=== PATIENT | female | born 1970 | race Caucasian/White ===

== ENCOUNTER 2019-06-24 20:30 | Emergency (ER) | payer SELFPAY ==
[2019-06-24 20:24] VITALS: BP 156/95; PULSE 108; RESP 20; TEMP 36.7; O2SAT 99; BMI 15.2
[2019-06-24 20:37] VITALS: BP 156/95; PULSE 110; RESP 20; O2SAT 99
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
[2019-06-24 22:19] VITALS: BP 115/76; PULSE 103; RESP 20; O2SAT 97
[2019-06-24] MEDS: HYDROcodone-acetaminophen 5-325 mg Tablet 4 TAB PO (22:22)
== END 2019-06-24 22:06 | disposition home or self-care (01) ==
PROVIDERS: Emergency Provider Family Medicine; Family Provider Family Medicine
DX: Z73.3 Stress, not elsewhere classified (principal); M25.512 Pain in left shoulder; M19.90 Unspecified osteoarthritis, unspecified site; F17.210 Nicotine dependence, cigarettes, uncomplicated
CPT/HCPCS: 99281

== ENCOUNTER 2019-08-05 18:04 | Inpatient (IN) | payer SELFPAY ==
[2019-08-05 18:06] VITALS: BP 113/80; PULSE 112; RESP 18; TEMP 36.7; O2SAT 100; BMI 15.5
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
[2019-08-05 19:15] VITALS: BP 109/68; PULSE 106; RESP 18; O2SAT 96
[2019-08-05 19:15] LABS: ABG PCO2 31.1 mmHg (35-45); ABG PH Result 7.52 (7.35-7.45); Arterial Blood Gas Hematocrit 31.3 % (37-47); Base Excess ABG 2.4 mmol/L (-2.0-2.0); Blood Gas Allen Test Pos; Blood Gas Sample Site Brachial, right; Blood Gas Sample Type Arterial; Oxygen Device ROOM AIR
[2019-08-05 19:24] LABS: Bilirubin Urine 1+ (NEGATIVE); Blood Urine Neg (Negative); Glucose Urine UA Norm (Normal); Ketones Urine Negative (Negative); Leukocyte Esterase Urine Trace (Negative); Nitrate Urine Negative (Negative); Protein Urine Neg (Negative); Urine Appearance Cloudy (CLEAR); Urine Color Orange (Yellow); Urobilinogen Urine >=8.0 mg/dL (Negative); pH Urine 6.5 (5-7)
[2019-08-05 19:25] LABS: Bacteria Urine 4+; Squamous Epithelial Cell Urine 0-4 (0-5); WBC Urine 25-40 /hpf (0-5)
[2019-08-05 19:26] LABS: Add Urine Culture? Yes
[2019-08-05 19:28] LABS: Basophils # 0.1 10^3/uL (0.0-0.1); Basophils % 1.2 %; Hemoglobin 11.8 g/dL (11.5-15.3); Lymphocytes # 1.9 10^3/uL (0.8-4.8); Lymphocytes % 46.9 %; Mean Corpuscular HGB Conc 31.9 g/dL (30.0-36.0); Mean Corpuscular Hemoglobin 34.2 pg (28.0-34.0); Mean Corpuscular Volume 107.2 fL (81-99); Mean Platelet Volume 9.6 fL (7.4-10.4); Monocytes # 0.2 10^3/uL (0.2-0.9); Monocytes % 4.9 %; Neutrophils # 1.8 10^3/uL (1.8-7.7); Neutrophils % 45.5 %; Nucleated Red Blood Cells % 0 %; Platelet Count 148 10^3/cmm (130-400); Red Blood Count 3.45 10^6/uL (4.1-5.3); Red Cell Distribution Width 15.7 % (12.1-15.1); White Blood Count 4.1 10^3/uL (4.0-10.0)
[2019-08-05 19:34] LABS: INR 0.99 (0.8-1.2)
[2019-08-05 19:35] LABS: Partial Thromboplastin Time 32.3 SECONDS (23.9-36.7)
[2019-08-05 19:38] LABS: Amphetamines Screen Urine Negative (Negative); Barbiturates Screen Urine Negative (Negative); Benzodiazepines Screen Urine Negative (Negative); Cocaine Screen Urine Negative (Negative); Opiate Screen Urine Negative (Negative); PCP Screen Urine Negative (Negative); THC Screen Urine Negative (Negative)
[2019-08-05 19:39] LABS: Alanine Aminotransferase 21 U/L (0-33); Albumin Level 3.8 g/dL (3.5-5.2); Alcohol Level 298 mg/dL (0-10); Alkaline Phosphatase 225 IU/L (35-105); Anion Gap 22.5 (5-19); Aspartate Amino Transferase 127 U/L (0-32); Blood Urea Nitrogen 6 mg/dL (6-20); Carbon Dioxide 23 mmol/L (22-29); Chloride 100 mmol/L (98-107); Creatine Phosphokinase 57 U/L (26-192); Globulin 4.1 g/dL (1.3-4.6); Glomerular Filtration Rate 107.2 mL/min (90-130); Glucose 99 mg/dL (65-115); Lipase 29 U/L (13-60); Magnesium 1.6 mg/dL (1.7-2.3); Sodium 143 mmol/L (136-145); Total Bilirubin 1.6 mg/dL (0.15-1.2); Total Protein 7.9 g/dL (6.6-8.7)
[2019-08-05 19:46] LABS: Ketone (Acetest) Serum Negative (Negative)
[2019-08-05 19:47] LABS: HCG, Serum Qual Negative (Negative)
[2019-08-05 19:54] LABS: Troponin(5th) Baseline 8 ng/mL (0-10)
[2019-08-05 19:55] LABS: Potassium 2.5 mmol/L (3.5-5.1)
[2019-08-05 20:15] VITALS: BP 105/71; PULSE 101; RESP 16; O2SAT 95
--- NOTE | 2019-08-05 20:28 | ECG_ITS ---
Measurements Intervals [place] Rate: 101 P: 52 FL: 118 QRS: 75 QRSD: 78 T: 73 QT: 362 QTc: 470 SINUS TACHYCARDIA WITH SHORT FL INTERVAL MODERATE ST DEPRESSION [0.05+ mV ST DEPRESSION] No previous ECG available for comparison Electronically Signed On 08-06-2019 14:32:25 ARCHITECTURE DRAFTER by Jenniffer Aquino M.D. [email or web address]
[2019-08-05] MEDS: ondansetron 2 mg/ML SDV 2 mL 4 MG IVP (20:50)
[2019-08-05] MEDS: cefTRIAXone 1,000 MG in sodium chloride 0.9% (plus) 50 ML 100 MG IV (20:52)
[2019-08-05] MEDS: magnesium sulfate premix 2 GM/50 ML PIGGYBACK IV (20:57)
[2019-08-05] MEDS: folic acid 1 MG, multivitamin inj 10 ML, thiamine 100 MG in sodium chloride 0.9% 1,000 ML 252.8 MG IV (20:58)
[2019-08-05 21:18] LABS: Troponin 5 2HR 7.73 ng/mL (0-10)
[2019-08-05 21:24] LABS: Troponin 5 2HR Delta -0.27 ABS# (0-10)
[2019-08-05 21:42] LABS: Lactic Sepsis W/Reflex 3.8 mmol/L (0.5-2.2)
--- NOTE | 2019-08-05 22:14 | PC.NURSE ---
PT MAKING SEVERAL STATEMENTS ABOUT WANTING TO LEAVE, STATES I'LL COME BACK TOMORROW. DR THOMPSON NOTIFIED, SPEAKING WITH PT ABOUT HER LAB RESULTS AND THE NEED FOR HER TO STAY. EXPLAINED TO PT THAT IT WOULD NOT BE SAFE FOR HER TO LEAVE WITH HER LABS THE WAY THEY ARE NOW. DR THOMPSON EXPLAINED TO PT SHE WOULD BE 96'D IF SHE COULD NOT MAKE DECISIONS FOR HER SELF. 1:1 SITTER AT BEDSIDE.
[2019-08-05] MEDS: LORazepam 2 mg/mL INJ 1 mL 1 MG IVP (22:29)
[2019-08-05 22:36] VITALS: BP 111/82; PULSE 103; RESP 16; O2SAT 95
[2019-08-05 22:44] LABS: Reflex Lactate Order REFLEX LACTIC ORDERD
[2019-08-05] MEDS: HYDROcodone-acetaminophen 5-325 mg Tablet 1 TAB PO (23:51)
[2019-08-05] MEDS: LORazepam 2 mg/mL INJ 1 mL IM (23:51)
[2019-08-06] VITALS (80 sets, daily range): BP systolic 93–154; BP diastolic 69–110; PULSE 94–127; RESP 10–25; TEMP 36.6; O2SAT 91–100
[2019-08-06 00:38] LABS: Lactic Acid level (Lactate) 5.9 mmol/L (0.5-2.2)
--- NOTE | 2019-08-06 00:39 | PC.NURSE ---
unable to obtain labs at this time. notified dr. hernandez . pt has 24 ga in wrist that demar not draw. will attempt after pt more hydrated. rashmi buitrago.
--- NOTE | 2019-08-06 02:52 | PC.NURSE ---
ciwa 27 ativan administered. rashmi buitrago.
[2019-08-06] MEDS: D5-NS 0.45% + KCL 20 mEq 20 MEQ/1,000 ML BAG 150 MEQ IV (06:26)
[2019-08-06 07:46] LABS: Basophils % 0.9 %; Eosinophils # 0.1 10^3/uL (0.0-0.8); Eosinophils % 1.8 %; Hematocrit 27.7 % (37.0-47.0); Hemoglobin 9.2 g/dL (11.5-15.3); Lymphocytes # 1.1 10^3/uL (0.8-4.8); Lymphocytes % 30.9 %; Mean Corpuscular HGB Conc 33.2 g/dL (30.0-36.0); Mean Corpuscular Hemoglobin 36.2 pg (28.0-34.0); Mean Corpuscular Volume 109.1 fL (81-99); Mean Platelet Volume 10.8 fL (7.4-10.4); Monocytes # 0.2 10^3/uL (0.2-0.9); Monocytes % 5.9 %; Neutrophils % 59.3 %; Nucleated Red Blood Cells % 0.9 %; Platelet Count 104 10^3/cmm (130-400); Red Blood Count 2.54 10^6/uL (4.1-5.3); Red Cell Distribution Width 15.5 % (12.1-15.1); White Blood Count 3.4 10^3/uL (4.0-10.0)
[2019-08-06 08:00] LABS: Slide Review Slide Review Perform
--- NOTE | 2019-08-06 08:08 | PC.NURSE ---
Right hand and forearm swollen. IV removed from right wrist. IV catheter intact. site swollen. Pulses intact. Will continue to closely monitor.
--- NOTE | 2019-08-06 08:28 | XR_ITS ---
WS: [id number] XR chest 1V portable [id number] REASON FOR EXAM: dyspnea FINDINGS: Comparisons were made to previous exam February 09, 2019. Normal heart size is seen. The lung scanlon are well aerated no infiltrates are noted. There is postop changes with plate and screw in the lower cervical area. Monitor leads are seen across the chest wall. XR/XR chest 1V portable [id number] IMPRESSION: No acute pulmonary infiltrates.
[2019-08-06 08:30] LABS: Troponin 5 6HR 7.37 ng/mL (0-10)
[2019-08-06 08:32] LABS: Troponin 5 6HR Delta -0.63 ng/L (0-12)
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
[2019-08-06 10:42] LABS: Alanine Aminotransferase 19 U/L (0-33); Albumin Level 2.8 g/dL (3.5-5.2); Alkaline Phosphatase 178 IU/L (35-105); Aspartate Amino Transferase 135 U/L (0-32); Blood Urea Nitrogen 5 mg/dL (6-20); Calcium 8.3 mg/dL (8.5-10.5); Carbon Dioxide 23 mmol/L (22-29); Chloride 100 mmol/L (98-107); Globulin 3.5 g/dL (1.3-4.6); Glomerular Filtration Rate 171.1 mL/min (90-130); Glucose 121 mg/dL (65-115); Magnesium 1.2 mg/dL (1.7-2.3); Sodium 140 mmol/L (136-145); Total Bilirubin 2.8 mg/dL (0.15-1.2); Total Protein 6.3 g/dL (6.6-8.7)
[2019-08-06] MEDS: ondansetron 4 MG Tablet PO (10:42)
[2019-08-06] MEDS: LORazepam 2 mg Tablet PO (10:42)
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
== END 2019-08-06 11:55 | disposition home or self-care (01) | DRG 897 ==
LOC: ER 20:52 → ICU 21:14
PROVIDERS: Admitting Provider Family Medicine; Emergency Provider Emergency Medicine; Family Provider Family Medicine; Visit Provider Family Medicine
DX: F10.229 Alcohol dependence with intoxication, unspecified (principal); E87.2 Acidosis; E46 Unspecified protein-calorie malnutrition; Z68.1 Body mass index [BMI] 19.9 or less, adult; F10.239 Alcohol dependence with withdrawal, unspecified; E87.6 Hypokalemia; E83.42 Hypomagnesemia; K76.89 Other specified diseases of liver; F17.210 Nicotine dependence, cigarettes, uncomplicated
CPT/HCPCS: 12345; 36415; 36600; 70450; 71045; 80053; 80306; 80307; 81001; 82009; 82550; 82803; 83605; 83690; 83735; 84484; 84703; 85025; 85610; 85730; 87077; 87086; 87186; 93005; 96375; 99283; A9270; J0131; J0696; J2060; J2405; J3411; J3475; J3490; J7030; Q0162

== ENCOUNTER → 2020-02-10 14:01 | Outpatient (BNVA) | payer OTHER, SELFPAY | PROVIDERS: Family Provider Family Medicine; Visit Provider Psychiatry & Neurology Psychiatry | DX: F41.1 Generalized anxiety disorder (principal) | CPT/HCPCS: 80061; 83036 ==

== ENCOUNTER 2020-04-06 21:19 | Emergency (ER) | payer MEDICAID, SELFPAY ==
[2020-02-17 16:27] VITALS: BP 123/85; BMI 17.7
[2020-04-06 21:26] VITALS: BP 136/64; PULSE 114; RESP 18; TEMP 36.5; O2SAT 97; BMI 17.8
--- NOTE | 2020-04-06 21:36 | CTR_ITS ---
PROCEDURE INFORMATION: Exam: CT Abdomen And Pelvis With Contrast Exam date and time: 04/06/2020 9:39 PM Age: 49 years old Clinical indication: Other: Abnormal vagingal bleeding; Prior surgery; Surgery type: Cholecystectomy, appendectomy, bowel and stomach; Patient HX: PT states heavy vaginal bleeding with clots x 2 weeks, states she hasn't had menses in 10 yrs. ; Additional info: Abd pain TECHNIQUE: Imaging protocol: Computed tomography of the abdomen and pelvis with intravenous contrast. Radiation optimization: All CT scans at this facility use at least one of these dose optimization techniques: automated exposure control; mA and/or kV adjustment per patient size (includes targeted exams where dose is matched to clinical indication); or iterative reconstruction. Contrast material: OMNI 300; Contrast volume: 75 ml; Contrast route: INTRAVENOUS (IV); COMPARISON: CT Abdomen/Pelvis Renal [id number] 09/14/2018 7:35 PM RADIATION DOSE METRICS: Total DLP (mGy-cm): 220.94 FINDINGS: Liver: The liver is mildly enlarged and demonstrates fatty infiltration changes. No mass. Gallbladder and bile ducts: The gallbladder has been removed. No biliary ductal dilatation. Pancreas: Normal. No ductal dilation. Spleen: Normal. No splenomegaly. Adrenals: Normal. No mass. Kidneys and ureters: Normal. No hydronephrosis. Stomach and bowel: Surgical clips are seen at the gastroesophageal junction. Gastrojejunostomy changes are also noted. No intestinal obstruction. A large amount of stool is present in the colon. No intestinal obstruction. Appendix: The appendix has been removed. Intraperitoneal space: Unremarkable. No free air. No significant fluid collection. Vasculature: Unremarkable. No abdominal aortic aneurysm. Lymph nodes: Unremarkable. No enlarged lymph nodes. Urinary bladder: Unremarkable as visualized. Reproductive: The uterus and ovaries appear normal. However, the endometrium measures approximately 13 mm in thickness. Bones/joints: Unremarkable. No acute fracture. Soft tissues: Unremarkable. CT/CT abdomen pelvis w con* [id number] IMPRESSION: 1. Slightly prominent endometrium measuring 13 mm in thickness. The uterus and ovaries appear normal. Correlation with menstrual cycle history is recommended. Pelvic ultrasound may allow further assessment if clinically warranted 2. Mild hepatomegaly and hepatic steatosis. 3. Constipation. Radiation Dose CTDIVOL = (mGy): DLP = 220.94 (mGy-cm)
--- NOTE | 2020-04-06 21:52 | W.ED.FEMALGU ---
HPI - Female Genitourinary General: Chief complaint: Vaginal Bleeding Stated complaint: abnormal vaginal bleeding Time Seen by Provider: 04/06/20 21:27 Source: patient Mode of arrival: ambulatory Limitations: no limitations History of Present Illness: HPI Narrative: 49-year-old female states she has been having vaginal bleeding over the last 5 to 6 days. She states she has not had any menstruation over 10 years. She states that it has been quite heavy and she is passing clots and having pain. She denies any worsening improving factors. Patient denies any fever. She denies any vomiting or diarrhea. Denies any lightheadedness. Associated symptoms: Deny abdominal pain, headache(s) or nausea Review of Systems Const: Denies: fever(s), chills, body aches or change in appetite Eyes: Denies: blurry vision or eye discomfort ENMT: Denies: throat pain or dental pain Card: Denies: chest pain Resp: Denies: dyspnea GI: Denies: abdominal pain, nausea, vomiting or diarrhea : Reports: vaginal bleeding Musc: Denies: neck pain or back pain Skin/Breast: Denies: rash Neuro: Denies: headache(s) Psych: Denies: depression Bart/Lymph: Denies: easy bruising All/Imm: Denies: urticaria PFSH ED PFSH: Medical History Arthritis Pancreatitis Surgical History History of appendectomy History of cholecystectomy History of intestinal surgery Social History Smoking and tobacco status: current every day smoker cigarettes Packs smoked per day: 0.5 Years cigarettes smoked: 20 Quit status (tobacco): not considering quitting Second hand smoke exposure: Yes Smoking risk assessment/counseling performed?: Yes Tobacco counseling given: counseling >3 minutes Current gender identity: Female Physical Exam Const: COMMON NORMALS: no acute distress, patient oriented x3 and healthy appearing HENMT: COMMON NORMALS: normocephalic and atraumatic HEAD & SCALP: normocephalic and atraumatic Eye: COMMON NORMALS: Equal, round and reactive pupils present and EOMs intact bilaterally PUPIL: Yes Equal, round and reactive pupils present Neck/C-Spine: COMMON NORMALS: full ROM and supple Chest: COMMONS NORMALS: normal inspection of the chest and normal palpation of entire chest wall Resp: COMMON NORMALS: normal respiratory effort, No retractions, No use of accessory muscles and clear to auscultation bilaterally AUSCULTATION: clear to auscultation bilaterally Cardio: COMMON NORMALS: regular rate, regular rhythm and No murmurs present (Cardio) RATE: regular rate RHYTHM: regular rhythm GI: COMMON NORMALS: Normal to inspection, nondistended, normoactive bowel sounds present, Soft to palpation, non-tender and no masses PALPATION: Yes Soft to palpation : OTHER: Small amount of blood in vaginal vault with no clot Extremity: COMMON NORMALS: normal to inspection and full ROM Neuro: COMMON NORMALS: patient oriented x3, moves all extremities and no focal motor deficits Psych: COMMON NORMALS: mental status grossly normal, Normal thought process present and cooperative THOUGHT PROCESS: Normal thought process present Skin: COMMON NORMALS: no rashes or lesions noted and no wounds GENERAL SKIN EXAM: no rashes or lesions noted Course Vital Signs: Vital signs: Vital Signs Temperature 97.7 F 04/06/20 21:26 Pulse Rate 114 H 04/06/20 21:26 Respiratory Rate 16 04/06/20 23:40 Blood Pressure 136/64 04/06/20 21:26 Pulse Oximetry 97 04/06/20 21:26 MDM - Female MDM Narrative: Medical decision making narrative: Patient presents here with vaginal bleeding. Patient's bleeding slowed hearing pelvic exam showed only a small amount of blood. Her hemoglobin is stable. Patient is stable for discharge and is to follow-up with process environmental technician in 2 to 4 days. Patient is to return if worsening. She understands agrees to plan. Lab Data: Labs: Lab Results 04/06/20 04/06/20 04/06/20 Range/Units 22:32 22:32 23:21 WBC Cancelled Corrected WBC Cancelled RBC Cancelled Hgb Cancelled Hct Cancelled MCV Cancelled MCH Cancelled MCHC Cancelled RDW Cancelled Plt Count Cancelled MPV Cancelled Gran % Cancelled Neut % (Auto) Cancelled Lymph % (Auto) Cancelled [place] % (Auto) Cancelled Eos % (Auto) Cancelled Baso % (Auto) Cancelled Neut # (Auto) Cancelled Lymph # (Auto) Cancelled [place] # (Auto) Cancelled Eos # (Auto) Cancelled Baso # (Auto) Cancelled Absolute Gran (aut o) Cancelled Nucleated RBC % (a uto) Cancelled Nucleated RBCs # Cancelled PT 12.80 (12.1-14.9) SECO NDS INR 0.93 (0.8-1.2) Sodium Cancelled Potassium Cancelled Chloride Cancelled Carbon Dioxide Cancelled Anion Gap Cancelled BUN Cancelled Creatinine Cancelled GFR Calculation Cancelled Glucose Cancelled Calculated Osmolal ity Cancelled Calcium Cancelled Total Bilirubin Cancelled AST Cancelled ALT Cancelled Alkaline Phosphata se Cancelled Total Protein Cancelled Albumin Cancelled Globulin Cancelled 04/06/20 04/06/20 04/07/20 Range/Units 23:21 23:21 01:13 WBC 4.3 Corrected WBC RBC 3.73 L Hgb 12.3 11.2 L Hct 36.8 L 33.8 L MCV 98.7 MCH 33.0 MCHC 33.4 RDW 14.6 Plt Count 88 L MPV 10.5 H Gran % Neut % (Auto) 39.5 Lymph % (Auto) 45.2 [place] % (Auto) 10.8 Eos % (Auto) 2.5 Baso % (Auto) 1.8 Neut # (Auto) 1.71 L Lymph # (Auto) 2.0 [place] # (Auto) 0.5 Eos # (Auto) 0.1 Baso # (Auto) 0.1 Absolute Gran (aut o) Nucleated RBC % (a uto) 0 Nucleated RBCs # 0.0 PT (12.1-14.9) SECO NDS INR (0.8-1.2) Sodium 139 Potassium 3.2 L Chloride 96 L Carbon Dioxide 25 Anion Gap 21.2 H BUN 7 Creatinine 0.5 GFR Calculation 131.7 H Glucose 77 Calculated Osmolal ity 285 Calcium 8.9 Total Bilirubin 1.2 AST 171 H ALT 32 Alkaline Phosphata se 161 H Total Protein 8.4 Albumin 4.6 Globulin 3.8 Imaging Data: CT Abd/Pel: Attestation: I personally reviewed and interpreted this imaging study as follows: Radiologist's impression: [address] [place] [address] CT Scan Report Signed Patient: Martha Hassan Unit #: [id number] : 1970 Age/Sex: 49 / F ADM Date: 04/06/20 Loc: ER Room/Bed: Attending Dr: Ordering Provider/Ordering MD: Darrell Trujillo MD Date of Service: 04/06/20 Procedure(s): CT abdomen pelvis w con* [id number] Accession Number(s): [id number] Report Number: [id number] PROCEDURE INFORMATION: Exam: CT Abdomen And Pelvis With Contrast Exam date and time: 04/06/2020 9:39 PM Age: 49 years old Clinical indication: Other: Abnormal vagingal bleeding; Prior surgery; Surgery type: Cholecystectomy, appendectomy, bowel and stomach; Patient HX: PT states heavy vaginal bleeding with clots x 2 weeks, states she hasn't had menses in 10 yrs. ; Additional info: Abd pain TECHNIQUE: Imaging protocol: Computed tomography of the abdomen and pelvis with intravenous contrast. Radiation optimization: All CT scans at this facility use at least one of these dose optimization techniques: automated exposure control; mA and/or kV adjustment per patient size (includes targeted exams where dose is matched to clinical indication); or iterative reconstruction. Contrast material: OMNI 300; Contrast volume: 75 ml; Contrast route: INTRAVENOUS (IV); COMPARISON: CT Abdomen/Pelvis Renal [id number] 09/14/2018 7:35 PM RADIATION DOSE METRICS: Total DLP (mGy-cm): 220.94 FINDINGS: Liver: The liver is mildly enlarged and demonstrates fatty infiltration changes. No mass. Gallbladder and bile ducts: The gallbladder has been removed. No biliary ductal dilatation. Pancreas: Normal. No ductal dilation. Spleen: Normal. No splenomegaly. Adrenals: Normal. No mass. Kidneys and ureters: Normal. No hydronephrosis. Stomach and bowel: Surgical clips are seen at the gastroesophageal junction. Gastrojejunostomy changes are also noted. No intestinal obstruction. A large amount of stool is present in the colon. No intestinal obstruction. Appendix: The appendix has been removed. Intraperitoneal space: Unremarkable. No free air. No significant fluid collection. Vasculature: Unremarkable. No abdominal aortic aneurysm. Lymph nodes: Unremarkable. No enlarged lymph nodes. Urinary bladder: Unremarkable as visualized. Reproductive: The uterus and ovaries appear normal. However, the endometrium measures approximately 13 mm in thickness. Bones/joints: Unremarkable. No acute fracture. Soft tissues: Unremarkable. CT/CT abdomen pelvis w con* [id number] IMPRESSION: 1. Slightly prominent endometrium measuring 13 mm in thickness. The uterus and ovaries appear normal. Correlation with menstrual cycle history is recommended. Pelvic ultrasound may allow further assessment if clinically warranted 2. Mild hepatomegaly and hepatic steatosis. 3. Constipation. Discharge Plan Discharge Patient Disposition: Home Clinical Impression: Vaginal bleeding Condition: Stable Prescriptions: No Action B Complex-Vitamin B12 Tablet 1 tab PO DAILY Qty: 30 RF: 2 thiamine HCl (vitamin B1) 100 mg tablet 500 mg PO TID Qty: 450 RF: 2 naltrexone 50 mg tablet 50 mg PO DAILY Qty: 30 RF: 2 multivitamin Tablet 1 tab PO DAILY Qty: 30 RF: 2 buspirone 10 mg tablet 20 mg PO TID Qty: 180 RF: 2 quetiapine [Seroquel] 50 mg tablet 50 mg PO .HS Qty: 30 RF: 2 [place] 5-325 mg tablet 1 tab PO Q6H PRN (Reason: pain) Qty: 14 RF: 0 Discharge Orders: Discharge Order (Routine); Ordered 04/07/20 Ordered By: Darrell Trujillo Referrals: Woo Drummond MD [Physician] - 1-3 days Ho Serrano MD [Family Provider] - Discharge Diet: Advance as tolerated Discharge Activity: Resume usual activity Patient Instructions: Dysfunctional Uterine Bleeding (ED) Coding Level of Care Code ED Public Works Director for Chg Fwd Exam Comprehensive
[2020-04-06 23:32] LABS: Basophils # 0.1 10^3/uL (0.0-0.1); Basophils % 1.8 %; Eosinophils # 0.1 10^3/uL (0.0-0.8); Eosinophils % 2.5 %; Hematocrit 36.8 % (37.0-47.0); Hemoglobin 12.3 g/dL (11.5-15.3); Lymphocytes % 45.2 %; Mean Corpuscular HGB Conc 33.4 g/dL (30.0-36.0); Mean Corpuscular Volume 98.7 fL (81-99); Mean Platelet Volume 10.5 fL (7.4-10.4); Monocytes # 0.5 10^3/uL (0.2-0.9); Monocytes % 10.8 %; Neutrophils # 1.71 10^3/uL (1.8-7.7); Neutrophils % 39.5 %; Nucleated Red Blood Cells % 0 %; Platelet Count 88 10^3/cmm (130-400); Red Blood Count 3.73 10^6/uL (4.1-5.3); Red Cell Distribution Width 14.6 % (12.1-15.1); White Blood Count 4.3 10^3/uL (4.0-10.0)
[2020-04-06 23:40] VITALS: RESP 16
[2020-04-06] MEDS: ondansetron 2 mg/ML SDV 2 mL 4 MG IVP (23:46)
[2020-04-06 23:49] LABS: INR 0.93 (0.8-1.2)
[2020-04-06 23:59] LABS: Alanine Aminotransferase 32 U/L (0-33); Albumin Level 4.6 g/dL (3.5-5.2); Alkaline Phosphatase 161 IU/L (35-105); Anion Gap 21.2 (5-19); Aspartate Amino Transferase 171 U/L (0-32); Blood Urea Nitrogen 7 mg/dL (6-20); Calcium 8.9 mg/dL (8.5-10.5); Carbon Dioxide 25 mmol/L (22-29); Chloride 96 mmol/L (98-107); Globulin 3.8 g/dL (1.3-4.6); Glomerular Filtration Rate 131.7 mL/min (90-130); Glucose 77 mg/dL (65-115); Osmolality Calculated 285 mOsm/kg (285-295); Potassium 3.2 mmol/L (3.5-5.1); Sodium 139 mmol/L (136-145); Total Bilirubin 1.2 mg/dL (0.15-1.2); Total Protein 8.4 g/dL (6.6-8.7)
[2020-04-07] MEDS: iohexol 300 mg/mL 100 mL Btl IV (00:01)
[2020-04-07] MEDS: HYDROmorphone 1 mg/mL INJ 1 mL IVP (00:44)
[2020-04-07 01:44] LABS: Hematocrit 33.8 % (37.0-47.0); Hemoglobin 11.2 g/dL (11.5-15.3)
[2020-04-07] MEDS: HYDROcodone-acetaminophen 7.5-325 mg Tablet 1 TAB PO (01:55)
[2020-04-07 01:57] VITALS: BP 115/70; PULSE 100; RESP 16; O2SAT 95
--- NOTE | 2020-04-07 09:19 | DCPLANNER ---
confectionery laboratory manager had message to schedule a follow up appointment for patient with [facility]. confectionery laboratory manager called [facility], spoke with [facility], gave clinic patients information. confectionery laboratory manager was told that patients information would be printed and reviewed. Clinic will call patient with appointment information.
--- NOTE | 2020-04-07 15:29 | PC.NURSE ---
MS given 4mg IVP, medication did not capture scan when administered. Pain was a 9 on a scale of 1-10, medication was given over 3 minutes. Morphine was given at 2342 04/06/20
--- NOTE | 2020-04-08 15:15 | DCPLANNER ---
Patient has a follow up appointment scheduled for Sunday, April 12, 2020 at 8:30 with Hyun Manzanares. Clinic will call patient with appointment information.
--- NOTE | 2020-04-15 11:50 | DCPLANNER ---
Patient had a follow up appointment scheduled for 04.12.20 with [facility] - patient did attend appointment.
== END 2020-04-07 01:55 | disposition home or self-care (01) ==
PROVIDERS: Emergency Provider Emergency Medicine; Family Provider Family Medicine
DX: N93.9 Abnormal uterine and vaginal bleeding, unspecified (principal); F17.210 Nicotine dependence, cigarettes, uncomplicated
CPT/HCPCS: 12345; 74177; 80053; 85014; 85018; 85025; 85610; 96374; 96375; 99283; E0352; J1170; J2405; Q9967

== ENCOUNTER → 2020-04-12 09:11 | Outpatient (BNVA) | payer MEDICAID, SELFPAY ==
[2020-02-17 16:27] VITALS: BP 123/85; BMI 17.7
== END ==
PROVIDERS: Family Provider Family Medicine; Visit Provider Nurse Practitioner Women's Health
DX: N95.0 Postmenopausal bleeding (principal); Z01.419 Encounter for gynecological examination (general) (routine) without abnormal findings
CPT/HCPCS: 88175

== ENCOUNTER → 2020-04-20 09:16 | Outpatient (BNVA) | payer MEDICAID, SELFPAY ==
[2020-02-17 16:27] VITALS: BP 123/85; BMI 17.7
== END ==
PROVIDERS: Family Provider Family Medicine; Visit Provider Nurse Practitioner Women's Health
DX: N95.0 Postmenopausal bleeding (principal); N83.02 Follicular cyst of left ovary
CPT/HCPCS: 76830; 83001; 84146; 84443; 84450

== ENCOUNTER → 2020-04-21 12:59 | Outpatient (BNVA) | payer MEDICAID, SELFPAY ==
[2020-02-17 16:27] VITALS: BP 123/85; BMI 17.7
== END ==
PROVIDERS: Family Provider Family Medicine; Visit Provider Nurse Practitioner Women's Health
DX: N95.0 Postmenopausal bleeding (principal); N91.1 Secondary amenorrhea; E03.9 Hypothyroidism, unspecified; F10.20 Alcohol dependence, uncomplicated
CPT/HCPCS: 81025; 88305